=== PATIENT | female | born 1985 | race African-American/Black ===

== ENCOUNTER 2017-07-21 21:51 | Emergency (ER) | payer OTHER ==
[2017-07-21] MEDS: HYDROcodone/APAP 5/325MG 1 TAB TABLET PO (22:26)
== END 2017-07-21 22:40 | disposition home or self-care (01) ==
LOC: ER 22:40
DX: J32.9 Chronic sinusitis, unspecified (principal)
CPT/HCPCS: 99283

== ENCOUNTER → 2018-07-23 | Outpatient (CLI) | payer OTHER ==
[2017-07-21 22:00] VITALS: BP 171/108
[~2018-07-23] MED LIST: AMOX1TAB61 PO; PRED20TA PO
--- NOTE | 2018-07-23 16:24 | KCIC ---
EXAM: LUMBAR SPINE 3 VIEWS. HISTORY: Low back pain and right lower extremity radiculopathy. COMPARISON: None. FINDINGS: Alignment is maintained. Vertebral body heights are maintained, and no fractures are identified. Intervertebral disc heights are maintained. IMPRESSION: 1. No fracture or malalignment. Electronically signed by: Harvinder Key MD (07/23/2018 4:22 PM) [facility]
== END | disposition home or self-care (01) ==
LOC: KCIC 11:57
PROVIDERS: ATTEND Nurse Practitioner Family
DX: M54.5 Low back pain (principal); M54.10 Radiculopathy, site unspecified
CPT/HCPCS: 72100

== ENCOUNTER → 2019-12-14 | Outpatient (CLI) | payer OTHER ==
[2017-07-21 22:00] VITALS: BP 171/108
--- NOTE | 2019-12-14 08:45 | RAD ---
EXAM: Pelvic sonogram. HISTORY: Pain. TECHNIQUE: Sonographic imaging of the pelvis was performed. COMPARISON: None. FINDINGS: The uterus measures 9.7 x 6.2 x 5.7 cm. The endometrial stripe measures 11.2 mm in thickness. The right ovary measures 4.3 x 3.7 x 3.7 cm. The left ovary measures 3.2 x 2.2 x 2.0 cm. There is normal blood flow within both ovaries. There is a 3.3 cm dominant right ovarian follicular cyst. There is no pelvic free fluid. IMPRESSION: 1. 3.3 cm dominant right ovarian follicular cyst. 2. Otherwise, unremarkable pelvic sonogram. Electronically signed by: Catherine Cartagena MD (12/14/2019 8:42 AM) [id number]
--- NOTE | 2019-12-14 09:44 | RAD ---
EXAMINATION: BREAST LEFT, MAMMO TARYN DIAG BILAT History: Reason: LEFT BREAST PAIN / Spl. Instructions: / History: Comparison: None. This exam is the baseline. Technique: Bilateral digital diagnostic mammogram views were obtained. CAD was utilized. 3-D tomosynthesis images were acquired. Findings: Breast Tissue Density C : The breasts are heterogeneously dense, which may obscure small masses. Marker was placed at the left upper outer breast posteriorly. There are no dominant masses, suspicious microcalcifications, or architectural distortion. No suspicious findings at the site of marker placement at the left upper outer breast. Ultrasound imaging of the left upper outer breast does not demonstrate a cyst, mass, or other finding to account for the reported palpable abnormality. Left axilla is unremarkable with no enlarged lymph nodes or other lesion. On physical exam by myself, there is no suspicious palpable finding. IMPRESSION: No mammographic evidence of malignancy on mammography, ultrasound, or upon palpation by myself. Clinical management is recommended in determining need for biopsy or other further assessment. BI-RADS category 1: Negative. . The images were reviewed with computer aided detection. Patient information is entered into the reminder system with a target due date for the next screening mammogram. Mammography is the most sensitive method for finding small breast cancers, but it does not detect them all and is not a substitute for careful clinical examination. A negative mammogram does not negate a clinically suspicious finding and should not result in delay in biopsying a clinically suspicious abnormality. "Our facility is accredited by the [employer] Mammography [employer]." Electronically signed by: Boyd Magana MD (12/14/2019 9:41 AM) [email or web address]
== END ==
LOC: US 08:08
PROVIDERS: ATTEND Nurse Practitioner Family
DX: N64.4 Mastodynia (principal); N83.01 Follicular cyst of right ovary
CPT/HCPCS: 76641; 76856; 77066; G0279; 77062

== ENCOUNTER 2021-03-03 15:56 | Emergency (ER) | payer BC, OTHER ==
[~2021-03-03] VITALS: Ht 167.6 cm; Wt 78.1 kg
[2021-03-03 16:42] LABS: BILIRUBIN,URINE NEGATIVE (NEG); CLARITY,URINE CLEAR; COLOR,URINE YELLOW; NITRITE,URINE NEGATIVE (NEG); PH,URINE 6.5 (<5.0-8.0); PROTEIN,URINE NEGATIVE (NEG-TRACE); UROBILINOGEN,URINE 0.2 mg/dL (0.2 mg/dL)
[2021-03-03 16:52] LABS: BACTERIA,URINE FEW /HPF (0-FEW)
[2021-03-03 16:54] LABS: RBC,URINE RARE /HPF (0-2); WBC,URINE RARE /HPF (0-4)
[2021-03-03] MEDS ORDERED: KETOROLAC 60 MG/2 ML VIAL. IM ONE (17:00)
--- NOTE | 2021-03-03 17:35 | RAD ---
EXAMINATION: CT abdomen and pelvis without IV contrast. INDICATION:35 years, Female, left flank pain. TECHNIQUE: Axial CT images of the abdomen and pelvis were obtained. Coronal and sagittal reformatted performed. COMPARISON: None. Exposure: One or more of the following individualized dose reduction techniques were utilized for thi s examination: 1. Automated exposure control 2. Adjustment of the mA and/or kV according to patient size 3. Use of iterative reconstruction technique. FINDINGS: LOWER CHEST: Unremarkable. ABDOMEN/PELVIS: Within the limitation of noncontrast exam, No hydronephrosis or nephrolithiasis in either kidney. Decompressed urinary bladder which limits eval uation. Liver, spleen, gallbladder, pancreas, biliary ducts, and pancreas are unremarkable. No bowel obstruction. Normal appendix. Moderate amount of stool throughout the colon. Normal caliber abdominal aorta. No ascites or pneumoperitoneum. No lymphadenopathy. Unremarkable uterus. MUSCULOSKELETAL STRUCTURES: No acute osseous process. Small fat-containing periumbilical hernia. IMPRESSION: 1. No obstructive uropathy or urolithiasis. 2. Moderate amount of colonic stool burden. Correlate for constipation. Electronically signed by: Jose David Natarajan MD (03/03/2021 5:33 PM) [facility]
--- NOTE | 2021-03-03 17:59 | PHYS DOC ---
Past Medical History Past Medical History: No Pertinent History Past Surgical History: Other Additional Past Surgical Histo: L shoulder Smoking Status: Never Smoker Alcohol Use: Occasionally Drug Use: None General Adult EDM: Chief Complaint: FLANK PAIN HPI: HPI: Patient is a 35 year old female who presents with left sided flank pain that began the night before last night. The pain starts on the left side and rad iates around to the left lower abdomen. She states the pain went away yesterday, but came back and is now constant 5/10 with fluctuating waves of 8/10 pain. She denies nausea, vomiting, diarrhea, bloody stool, dysuria. She is currently bleeding vaginally, although her period is not due until 03/09/21. Patient states there is a chance of , as she is actively trying to conceive. Review of Systems: Review of Systems: Constitutional: Denies fever, chills or generalized weakness Eyes: Denies change in visual acuity, visual field deficits or discharge HENT: Denies ear pain, nasal congestion or sore throat Respiratory: Denies cough or shortness of breath Cardiovascular: Denies chest pain, palpitations or edema GI: See HPI : See HPI Musculoskeletal: See HPI Integument: Denies rash or other skin lesion Neurologic: Denies headache, focal weakness or sensory changes Heart Score: C/O Chest Pain: No Current Medications: Current Medications Medications (Trade) Dose Ordered Sig/Teddy Start Time Stop Time Status Last Admin Dose Admin Ketorolac Tromethamine (Toradol Im) 60 mg 1X ONCE 03/03/21 17:00 03/03/21 17:01 DC Allergies: Allergies: Allergies Coded Allergies Type Severity Reaction Last Updated Verified No Known Drug Allergies 07/21/17 No Physical Exam: PE: Constitutional: Well developed, well nourished, no acute distress, non-toxic appearance. HENT: Normocephalic, atraumatic, bilateral external ears normal, oropharynx moist, no oral exudates, nose normal. Eyes: PERRLA, EOMI, conjunctiva normal, no discharge. Neck: Normal range of motion, no tenderness, supple, no stridor. Cardiovascular: Heart rate regular rhythm, no murmur. Lungs & Thorax: Bilateral breath sounds clear to auscultation. Abdomen: Bowel sounds normal, soft, no tenderness, no masses, no pulsatile masses. Skin: Warm, dry, no erythema, no rash. Back: No tenderness, no CVA tenderness. Extremities: No tenderness, no cyanosis, no clubbing, ROM intact, no edema. Neurologic: Alert and oriented x4, no focal deficits noted. Current Patient Data: Labs: Laboratory Tests Test 03/03/21 16:05 03/03/21 16:11 Urine Collection Type Void Urine Color Yellow Urine Clarity Clear Urine pH 6.5 (<5.0-8.0) Urine Specific [place] 1.010 (1.000-1.030) Urine Protein Negative mg/dL (NEG-TRACE) Urine Glucose (UA) Negative mg/dL (NEG) Urine Ketones (Stick) Negative mg/dL (NEG) Urine Blood Large (NEG) Urine Nitrite Negative (NEG) Urine Bilirubin Negative (NEG) Urine Urobilinogen Dipstick 0.2 mg/dL (0.2 mg/dL) Urine Leukocyte Esterase Negative (NEG) Urine RBC Rare /HPF (0-2) Urine WBC Rare /HPF (0-4) Urine Squamous Epithelial Cells Mod /LPF Urine Bacteria Few /HPF (0-FEW) POC Urine HCG, Qualitative Hcg negative (Negative) Vital Signs: Vital Signs Date Time Temp Pulse Resp B/P (MAP) Pulse Ox O2 Delivery O2 Flow Rate FiO2 03/03/21 20:00 89 18 169/100 (123) 97 Room Air 03/03/21 16:00 98.0 105 18 172/113 (132) 99 Room Air 98.0 Radiology/Procedures: Radiology/Procedures: PROCEDURE: CT ABDOMEN PELVIS WO CONTRAST EXAMINATION: CT abdomen and pelvis without IV contrast. INDICATION:35 years, Female, left flank pain. TECHNIQUE: Axial CT images of the abdomen and pelvis were obtained. Coronal and sagittal reformatted performed. COMPARISON: None. Exposure: One or more of the following individualized dose reduction techniques were utilized for this examination: 1. Automated exposure control 2. Adjustment of the mA and/or kV according to patient size 3. Use of iterative reconstruction technique. FINDINGS: LOWER CHEST: Unremarkable. ABDOMEN/PELVIS: Within the limitation of noncontrast exam, No hydronephrosis or nephrolithiasis in either kidney. Decompressed urinary bladder which limits evaluation. Liver, spleen, gallbladder, pancreas, biliary ducts, and pancreas are unremarkable. No bowel obstruction. Normal appendix. Moderate amount of stool throughout the colon. Normal caliber abdominal aorta. No ascites or pneumoperitoneum. No lymphadenopathy. Unremarkable uterus. MUSCULOSKELETAL STRUCTURES: No acute osseous process. Small fat-containing periumbilical hernia. IMPRESSION: 1. No obstructive uropathy or urolithiasis. 2. Moderate amount of colonic stool burden. Correlate for constipation. Electronically signed by: Jose David Natarajan MD (03/03/2021 5:33 PM) [facility] PROCEDURE: PELVIS W/TV EXAMINATION: US PELVIS W/TV INDICATION: 35 years, Female, left-sided abdominal pain, vaginal bleeding. COMPARISON: Same day CT abdomen and pelvis. Ultrasound dated 12/14/2019 TECHNIQUE: Transvaginal ultrasound of the pelvis was performed with grayscale, spectral, and color doppler imaging. FINDINGS: UTERUS: Position: Anteverted Measures: 8.5 x 5.2 x 5.3 cm. Uterine/Endometrial Morphology: Unremarkable. Endometrial Thickness: 1.2 cm, within normal limits. RIGHT OVARY/ADNEXA: Measures: 3.1 x 2.9 x 1.4 cm. Right Ovarian Morphology: Unremarkable. Right Ovarian Color And Spectral Doppler Flow: Normal. LEFT OVARY/ADNEXA: Measures: 4.8 x 2.4 x 1.8 cm. Left Ovarian Morphology: Unremarkable. Left Ovarian Color And Spectral Doppler Flow: Normal. OTHER: Fluid/Cul-De-Sac: None. IMPRESSION: Unremarkable transvaginal pelvic ultrasound. Electronically signed by: Jose David Natarajan MD (03/03/2021 7:53 PM) [facility] Course & Med Decision Making: Course & Med Decision Making Pertinent Labs and Imaging studies reviewed. (See chart for details) Patient is a 35-year-old female who is actively attempting to get with left-sided low back pain radiating to the left groin. Work-up today will include urine test, urinalysis. Pending urine test is negative, patient will be provided with Toradol and a CT scan will be performed. CT imaging negative for nephrolithiasis or hydronephrosis, other kidney pathology. Transvaginal ultrasound ordered to rule out ectopic . My suspicion is low due to negative urine test, however patient is having low adnexal region pain. Work-up is largely reassuring. Patient is disappointed that she is not currently . Advised that she take Tylenol for pain control, should she become pr egnant. Patient should follow-up with CIRCULATION ASSISTANT. Patient understands and is agreeable to discharge plan Marlys Disclaimer: Drag[place]zin Disclaimer: This electronic medical record was generated, in whole or in part, using a voice recognition dictation system. Departure Departure Impression: Primary Impression: Vaginal bleeding between periods Additional Impression: Left low back pain Qualified Codes: M54.50 - Low back pain, unspecified Disposition: HOME / SELF CARE / HOMELESS Condition: STABLE Referrals: HAYDEN PRESCOTT APRN (PCP) SARAH SPAIN MD Patient Instructions: Back Pain, Adult, [id number] Additional Instructions: Please follow-up with your sack cleaner for any further concern about vaginal bleeding or conception. You may take [id number] Tylenol for your pain, as you are trying to get at this time. Please return to the emergency department for worsening symptoms or development of new ones. DIEUDONNE GURROLA Mar 03, 2021 17:59
--- NOTE | 2021-03-03 19:56 | RAD ---
EXAMINATION: US PELVIS W/TV INDICATION: 35 years, Female, left-sided abdominal pain, vaginal bleeding. COMPARISON: Same day CT abdomen and pelvis. Ultrasound dated 12/14/2019 TECHNIQUE: Transvaginal ultrasound of the pelvis was performed with grayscale, spectral, and color do ppler imaging. FINDINGS: UTERUS: Position: Anteverted Measures: 8.5 x 5.2 x 5.3 cm. Uterine/Endometrial Morphology: Unremarkable. Endometrial Thickness: 1.2 cm, within normal limits. RIGHT OVARY/ADNEXA: Measures: 3.1 x 2.9 x 1.4 cm. Right Ovarian Morphology: Unremarkable. Right Ovarian Color And Spectral Doppler Flow: Normal. LEFT OVARY/ADNEXA: Measures: 4.8 x 2.4 x 1.8 cm. Left Ovarian Morphology: Unremarkable. Left Ovarian Color And Spectral Doppler Flow: Normal. OTHER: Fluid/Cul-De-Sac: None. IMPRESSION: Unremarkable transvaginal pelvic ultrasound. Electronically signed by: Jose David Natarajan MD (03/03/2021 7:53 PM) [facility]
[2021-03-03 20:00] VITALS: BP 169/100
== END 2021-03-03 20:10 | disposition home or self-care (01) ==
LOC: ER 15:56
DX: N93.9 Abnormal uterine and vaginal bleeding, unspecified (principal); M54.50 Low back pain, unspecified
CPT/HCPCS: 74176; 76830; 76856; 81001; 81025; 96372; 99284; J1885; 99285-25